=== PATIENT | female | born 1995 | race Two or more races ===

== ENCOUNTER 2016-08-23 09:54 | Emergency (ER) | payer MEDICAID ==
--- NOTE | 2016-08-23 11:19 | ER Document Report ---
HPI - HPI Patient complains to provider of: sore throat Pain Level: 4 Context: 20 yo female c/o sore throat x 4 days. + fever, no cough, no post nasal drip Associated Symptoms: Fever, Headache, Nausea, Sore throat. denies: Productive cough, Drooling, Hurts to breath Exacerbated by: Coughing, Food Relieved by: Denies Similar symptoms previously: Yes Recently seen / treated by doctor: No - ROS Systems Reviewed and Negative: Yes All other systems reviewed and negative - REPRODUCTIVE LMP: 08/21/16 Reproductive: DENIES: : - DERM Skin Color: Normal Past Medical History - General Information source: Patient - Social History Smoking Status: Current Some Day Smoker Chew tobacco use (# tins/day): No Frequency of alcohol use: None Drug Abuse: None Lives with: Family Family History: Reviewed & Not Pertinent, Other - Father has migraines Patient has suicidal ideation: No Patient has homicidal ideation: No - Past Medical History Cardiac Medical History: Reports: Hx Atrial Fibrillation Pulmonary Medical History: Reports: Hx Asthma - Presently asymptomatic Neurological Medical History: Reports: Hx Migraine Renal/ Medical History: Denies: Hx Peritoneal Dialysis Surgical Hx: Negative - Immunizations Immunizations up to date: Yes Hx Diphtheria, Pertussis, Tetanus Vaccination: Yes Vertical Provider Document - CONSTITUTIONAL Agree With Documented VS: Yes General Appearance: WD/WN, No Apparent Distress - INFECTION CONTROL TRAVEL OUTSIDE OF THE [place] IN LAST 30 DAYS: No - HEENT HEENT: Atraumatic, PERRLA, Pharyngeal Exudate, Pharyngeal Erythema - NECK Neck: Normal Inspection, Supple, Other - anterior cervical adenopathy - RESPIRATORY Respiratory: Breath Sounds Normal, No Respiratory Distress O2 Sat by Pulse Oximetry: 99 - CARDIOVASCULAR Cardiovascular: Regular Rate, Regular Rhythm - GI/ABDOMEN Gastrointestinal: Abdomen Soft, Abdomen Non-Tender - NEURO Level of Consciousness: Awake, Alert, Appropriate - DERM Integumentary: Warm, Dry, No Rash Course - Vital Signs Vital signs: Temp Pulse Resp BP Pulse Ox 98.3 F 71 14 104/71 99 08/23/16 10:15 08/23/16 10:15 08/23/16 10:15 08/23/16 10:15 08/23/16 10:15 Discharge - Discharge Clinical Impression: Sore throat Condition: Stable Disposition: HOME, SELF-CARE Instructions: Sore Throat ([facility]), Antibiotic Therapy ([facility]) Additional Instructions: meds as prescribed lozenges, salt water gargles new toothbrush in 2 days Prescriptions: Cephalexin Monohydrate [Keflex 500 mg Capsule] 500 mg PO QID #28 capsule
[2016-08-23 11:43] VITALS: BP 100/60
== END 2016-08-23 11:42 | disposition home or self-care (01) ==
LOC: ER 09:54
DX: J02.9 Acute pharyngitis, unspecified (principal); R50.9 Fever, unspecified; R51 Headache; F17.200 Nicotine dependence, unspecified, uncomplicated
CPT/HCPCS: 99282